=== PATIENT | male | born 1940 | race Caucasian/White ===

== ENCOUNTER → 2024-02-23 08:00 | Outpatient (REF) | payer MEDICARE, SELFPAY | LOC: RCS 08:00 | PROVIDERS: ATTENDING PHYSICIAN Internal Medicine Cardiovascular Disease; FAMILY PHYSICIAN Internal Medicine | DX: Z95.2 Presence of prosthetic heart valve (principal) | CPT/HCPCS: 93306 ==

== ENCOUNTER → 2024-11-26 07:16 | Outpatient (REF) | payer MEDICARE, SELFPAY ==
[2024-11-26 07:56] LABS: % Basophils 1.2 % (0-2); % Eosinophils 11.3 % (0-6); % Immature Granulocytes 0.2 % (0-0.5); % Lymphocytes 32.2 % (20.5-51.1); % Monocytes 8.3 % (1.7-9.3); % Neutrophils 46.8 % (42.2-75.2); Absolute Basophils 0.1 10^3/uL (0-0.2); Absolute Eosinophils 0.7 10^3/uL (0-0.7); Absolute Lymphocytes 1.9 10^3/uL (1.2-3.4); Absolute Monocytes 0.5 10^3/uL (0.1-0.6); Absolute Neutrophils 2.8 10^3/uL (1.4-6.5); Hematocrit 43.6 % (39.0-52.0); Hemoglobin 14.5 g/dL (13.0-18.0); Mean Corp Hgb Conc. 33.3 g/dL (33.0-37.0); Mean Corpuscular Hgb 31.5 pg (27.0-31.0); Mean Corpuscular Volume 94.6 fL (80.0-94.0); Mean Platelet Volume 9.9 fL (7.4-10.4); Nucleated Red Blood Cells % 0 % (-); Platelet Count 206 10^3/uL (130-400); Red Blood Cell Count 4.61 10^6/uL (4.70-6.10); Red Cell Dist. Width 12.4 % (11.5-14.5)
[2024-11-26 08:10] LABS: Urine Albumin 1+ (Neg - Trace); Urine Bilirubin Negative (Negative); Urine Character Clear (Clear); Urine Color Yellow; Urine Glucose Negative (Negative); Urine Ketone Negative (Negative); Urine Leukocyte Negative (Negative); Urine Nitrite Negative (Negative); Urine Occult Blood Negative (Negative); Urine Urobilinogen Negative (Neg - 1+)
[2024-11-26 08:25] LABS: ALT (SGPT) 27 U/L (0-50); AST (SGOT) 32 U/L (17-59); Albumin 4.2 g/dl (3.5-5.0); Alkaline Phosphatase 101 U/L (38-126); Blood Urea Nitrogen 32 mg/dl (9-20); Calcium 9.7 mg/dl (8.4-10.2); Carbon Dioxide 28 mmol/L (22-30); Chloride 106 mmol/L (98-107); Glucose 100 mg/dl (70-99); HDL Cholesterol 41 mg/dl; LDL Cholesterol, Calculated 99 mg/dl; Potassium 4.1 mmol/L (3.5-5.1); Sodium 142 mmol/L (135-145); Total Bilirubin 1.4 mg/dl (0.2-1.3); Total Cholesterol 170 mg/dl (50-199); Total Protein 7.7 g/dl (6.3-8.2); Triglyceride 152 mg/dl (10-149); Very Low Density Lipoprotein 30 mg/dl (0-30); eGFR > 60.00
[2024-11-26 08:54] LABS: TSH Reflex To Free T4 0.24 uIU/ml (0.47-4.68)
[2024-11-26 08:55] LABS: Urine Amorphous Seen; Urine Mucus Few
[2024-11-26 08:58] LABS: Urine Red Blood Cell 0-2 /HPF (0-2); Urine White Cell 0-2 /HPF (0-5)
[2024-11-26 09:22] LABS: Free T4 1.29 ng/dl (0.78-2.19)
[2024-11-28 13:40] LABS: PSA Total 5.9 ng/mL (0.0-4.0)
== END ==
LOC: REG 07:16
PROVIDERS: ATTENDING PHYSICIAN Internal Medicine
DX: I10 Essential (primary) hypertension (principal); G40.909 Epilepsy, unspecified, not intractable, without status epilepticus; I35.0 Nonrheumatic aortic (valve) stenosis; Z95.3 Presence of xenogenic heart valve; G60.9 Hereditary and idiopathic neuropathy, unspecified; M15.0 Primary generalized (osteo)arthritis; E05.00 Thyrotoxicosis with diffuse goiter without thyrotoxic crisis or storm; J98.4 Other disorders of lung; Z00.00 Encounter for general adult medical examination without abnormal findings; N40.1 Benign prostatic hyperplasia with lower urinary tract symptoms
CPT/HCPCS: 36415; 80053; 80061; 81003; 81015; 84153; 84154; 84439; 84443; 85025

== ENCOUNTER → 2025-03-25 07:44 | Outpatient (REF) | payer MEDICARE, SELFPAY | LOC: RCS 07:44 | PROVIDERS: ATTENDING PHYSICIAN Internal Medicine Cardiovascular Disease; FAMILY PHYSICIAN Internal Medicine | DX: I44.4 Left anterior fascicular block (principal); I10 Essential (primary) hypertension | CPT/HCPCS: 93306 ==

== ENCOUNTER → 2025-08-26 07:56 | Outpatient (REF) | payer MEDICARE, SELFPAY | LOC: RAD 07:56 | PROVIDERS: ATTENDING PHYSICIAN Internal Medicine | DX: J45.41 Moderate persistent asthma with (acute) exacerbation (principal) | CPT/HCPCS: 71046 ==